=== PATIENT | male | born 1985 | race Caucasian/White ===

== ENCOUNTER 2016-03-15 13:33 | Outpatient (CLI) | payer SELFPAY | END 2016-03-15 13:34 | disposition home or self-care (01) | DX: M67.472 Ganglion, left ankle and foot (principal) ==

== ENCOUNTER 2018-01-01 11:10 | Emergency (ER) | payer SELFPAY ==
[2018-01-01] MEDS ORDERED: MAG HYDROX/AL HYDROX/SIMETH 30 ML UDC PO STA (11:24)
[2018-01-01] MEDS ORDERED: FAMOTIDINE 20 MG TABLET PO STA (11:24)
[2018-01-01] MEDS ORDERED: LIDOCAINE VISCOUS 2% 15 ML UDC MM STA (11:24)
[2018-01-01] MEDS ORDERED: PHENobarb/HYOSCY/ATROPINE/SCOP 5 ML UDC PO STA (11:24)
[2018-01-01] MEDS ORDERED: SUCRALFATE 1 GM/10 ML UDC PO STA (11:24)
--- NOTE | 2018-01-01 11:29 | ED Physician Documentation ---
PD HPI ABD PAIN - Stated complaint Stated Complaint: STOMACH PX - Chief complaint Chief Complaint: Abd Pain - History obtained from History obtained from: Patient, Family - History of Present Illness Timing - onset: How many days ago (4-5) Timing - duration: Days (4-5) Timing - details: Gradual onset Pain level max: 5 Pain level now: 4 Quality: Aching, Dull, Pain Location: Epigastric Radiation: Other (Nonradiating) Improved by: Other (Patient states that sometimes Tums helps) Worsened by: Eating Associated symptoms: Nausea, Diarrhea (States loose stools but no diarrhea). No: Fever, Vomiting, Hematemesis, Constipation, Melena, Hematochezia Similar symptoms before: Diagnosis (States has a history of GERD but is not taking medication) Recently seen: Not recently seen Review of Systems Constitutional: denies: Fever, Chills Respiratory: denies: Cough GI: denies: Hematemesis, Bloody / black stool Skin: denies: Rash Musculoskeletal: denies: Neck pain, Back pain PD PAST MEDICAL HISTORY - Past Medical History Cardiovascular: Hypertension Respiratory: Asthma GI: GERD Psych: Panic attacks - Past Surgical History Past Surgical History: No Cardiovascular: Cardiac catheterization - Present Medications Home Medications: Ambulatory Orders Medication Instructions Recorded Confirmed Famotidine [Pepcid] 20 mg PO BID #60 tablet 01/01/18 Sucralfate [Carafate] 1 gm PO ACHS #60 tablet 01/01/18 - Allergies Allergies/Adverse Reactions: Allergies Allergy/AdvReac Type Severity Reaction Status Date / Time No Known Drug Allergies Allergy Verified 01/01/18 11:18 - Social History Does the pt smoke?: No Smoking Status: Never smoker Does the pt drink ETOH?: Yes Does the pt have substance abuse?: Yes - Immunizations Immunizations are current?: Yes - POLST Patient has POLST: No PD ED PE NORMAL - Vitals Vital signs reviewed: Yes - General General: Alert and oriented X 3, No acute distress, Well developed/nourished - HEENT HEENT: PERRL - Neck Neck: Supple, no meningeal sign - Cardiac Cardiac: RRR, No murmur - Respiratory Respiratory: Clear bilaterally - Abdomen Abdomen: Soft, Non distended, Other (Tender palpation epigastric without peritoneal signs. No right upper quadrant tenderness.) - Back Back: No CVA TTP, No spinal TTP - Derm Derm: Warm and dry, No rash - Neuro Neuro: Alert and oriented X 3 - Psych Psych: Normal mood, Normal affect Results - Vitals Vitals: Vital Signs - 24 hr 01/01/18 01/01/18 11:16 12:08 Temperature 36.7 C Heart Rate 67 58 L Respiratory 16 16 Rate Blood Pressure 161/95 H 145/100 H O2 Saturation 98 98 Oxygen O2 Source Room air PD MEDICAL DECISION MAKING - ED course Complexity details: re-evaluated patient, considered differential, d/w patient, d/w family ED course: Patient is a 32-year-old male with what appears to be gastritis versus peptic ulcer disease. Symptoms resolved with GI cocktail. Has a history of GERD but is not on medications. Will place him on medications and see how he progresses. No evidence of biliary colic or pancreatitis at this time. Well-appearing, nontoxic. Afebrile. Tolerating p.o. without difficulty. Patient counseled regarding signs and symptoms for which I believe and urgent re-evaluation would be necessary. Patient with good understanding of and agreement to plan and is comfortable going home at this time This document was made in part using voice recognition software. While efforts are made to proofread this document, sound alike and grammatical errors may occur. Departure - Departure Disposition: 01 Home, Self Care Clinical Impression: Gastritis Qualifiers: Gastritis type: unspecified gastritis Chronicity: acute Gastritis bleeding: without bleeding Qualified Code(s): K29.00 - Acute gastritis without bleeding Condition: Good Instructions: ED PUD Vs Gastritis Follow-Up: Kyle Caldera MD [Primary Care Provider] - Within 1 week Prescriptions: Famotidine [Pepcid] 20 mg PO BID #60 tablet Sucralfate [Carafate] 1 gm PO ACHS #60 tablet Comments: Return if you worsen. This should improve over the next few days. Discharge Date/Time: 01/01/18 12:09
[2018-01-01 12:09] VITALS: BP 145/100
== END 2018-01-01 12:09 | disposition home or self-care (01) ==
LOC: ED 11:10
DX: K29.00 Acute gastritis without bleeding (principal); I10 Essential (primary) hypertension
CPT/HCPCS: 99283; A9270

== ENCOUNTER 2018-01-22 08:00 | Outpatient (CLI) | payer SELFPAY ==
[2018-01-22 13:21] LABS: ALBUMIN 4.7 g/dL (3.2-5.5); ALBUMIN/GLOBULIN RATIO 1.7 (1.0-2.2); ALKALINE PHOSPHATASE 43 IU/L (42-121); ALT ALANINE AMINOTRANSFERASE 41 IU/L (10-60); AMYLASE 40 U/L (28-100); AST ASPARTATE AMINOTRANSFERASE 24 IU/L (10-42); BILIRUBIN,TOTAL 1.2 mg/dL (0.2-1.0); BUN - BLOOD UREA NITROGEN 14 mg/dL (6-20); CALCIUM 8.8 mg/dL (8.5-10.3); CARBON DIOXIDE - CO2 26 mmol/L (21-32); CHLORIDE 103 mmol/L (101-111); CHOL/HDL RATIO 4.3 (<5.0); CHOLESTEROL 151 mg/dL; CREATININE 0.9 mg/dL (0.6-1.2); GFR - MDRD 98 (>89); GLUCOSE 96 mg/dL (70-100); HDL CHOLESTEROL 35 mg/dL; LDL CHOLESTEROL,CALCULATED 106 mg/dL; LIPASE 25 U/L (22-51); SODIUM 136 mmol/L (135-145); TOTAL PROTEIN 7.5 g/dL (6.7-8.2); VLDL CHOLESTEROL 10 mg/dL
[2018-01-22 13:22] LABS: HB2 TOTAL 16.4 g/dL; HEMOGLOBIN A1C 0.51 g/dL
[2018-01-22 13:54] LABS: BASOPHILS # (AUTO) 0.1 10^3/uL (0.0-0.1); EOSINOPHILS # (AUTO) 0.1 10^3/uL (0.0-0.7); EOSINOPHILS % (AUTO) 2.2 %; LYMPHOCYTES # (AUTO) 1.5 10^3/uL (1.5-3.5); LYMPHOCYTES % (AUTO) 27.4 %; MEAN CORPUSCULAR HEMOGLOBIN 32.6 pg (27.0-31.0); MEAN CORPUSCULAR HGB CONC 35.2 g/dL (32.0-36.0); MEAN CORPUSCULAR VOLUME 92.6 fL (80.0-94.0); MEAN PLATELET VOLUME 9.4 fL (7.4-11.4); MONOCYTES # (AUTO) 0.5 10^3/uL (0.0-1.0); MONOCYTES % (AUTO) 8.8 %; NEUTROPHILS # (AUTO) 3.2 10^3/uL (1.5-6.6); NEUTROPHILS % (AUTO) 60.6 %; PLT - PLATELET COUNT 212 10^3/uL (130-450); RED BLOOD COUNT 4.61 10^6/uL (4.70-6.10); RED CELL DISTRIBUTION WIDTH 12.2 % (12.0-15.0); WHITE BLOOD COUNT 5.3 x10^3/uL (4.8-10.8)
== END 2018-01-22 08:01 | disposition home or self-care (01) ==
LOC: LAB.N 08:00
PROVIDERS: ATTEND Family Medicine
DX: K58.9 Irritable bowel syndrome, unspecified (principal); R73.9 Hyperglycemia, unspecified; E66.9 Obesity, unspecified; R10.9 Unspecified abdominal pain
CPT/HCPCS: 36415; 80053; 80061; 82150; 83036; 83690; 83721; 84443; 85025

== ENCOUNTER 2018-06-01 13:24 | Emergency (ER) | payer SELFPAY ==
[2018-06-01] MEDS ORDERED: DEXAMETHASONE 10 MG/ML VIAL PO STA (15:51)
--- NOTE | 2018-06-01 15:53 | ED Physician Documentation ---
PD HPI SKIN - Stated complaint Stated Complaint: RASH - Chief complaint Chief Complaint: General - History obtained from History obtained from: Patient, Family - History of Present Illness Timing - onset: How many days ago (2) Timing - duration: Days (2) Timing - details: Gradual onset, Still present Location: Bodywide Quality / character: Itchy, Discolored Improved by: Benadryl Associated symptoms: No: Fever, Joint pain Contributing factors: Exposed to food Similar symptoms before: Has not had sx before Recently seen: Not recently seen - Additional information Additional information: Previously well 32-year-old male has developed a rash initially on his forearm and now body wide has a suspicion this may be related to quinoa. He went out with some friends ate some quinoa developed some itching on his forearm and then became what was so delicious that he went home and made some for himself the following night and the following morning it woke up with an overall body rash. He has taken some Benadryl without resolution. Review of Systems Constitutional: denies: Fever Eyes: denies: Decreased vision Ears: denies: Ear pain Nose: denies: Rhinorrhea / runny nose, Congestion Throat: denies: Sore throat Respiratory: denies: Cough GI: denies: Vomiting : denies: Dysuria Skin: reports: Rash Musculoskeletal: denies: Neck pain, Back pain, Extremity pain PD PAST MEDICAL HISTORY - Past Medical History Cardiovascular: Hypertension Respiratory: Asthma GI: GERD Psych: Panic attacks - Past Surgical History Past Surgical History: No Cardiovascular: Cardiac catheterization - Present Medications Home Medications: Ambulatory Orders Medication Instructions Recorded Confirmed predniSONE [Prednisone] 40 mg PO DAILY #10 tablet 06/01/18 - Allergies Allergies/Adverse Reactions: Allergies Allergy/AdvReac Type Severity Reaction Status Date / Time No Known Drug Allergies Allergy Verified 06/01/18 13:47 - Social History Does the pt smoke?: No Smoking Status: Never smoker Does the pt drink ETOH?: Yes Does the pt have substance abuse?: Yes - Immunizations Immunizations are current?: Yes - POLST Patient has POLST: No PD ED PE NORMAL - Vitals Vital signs reviewed: Yes (hypertensive mild ) - General General: Alert and oriented X 3, No acute distress, Well developed/nourished - HEENT HEENT: Atraumatic, PERRL, EOMI - Neck Neck: Supple, no meningeal sign, No bony TTP - Cardiac Cardiac: RRR, No murmur - Respiratory Respiratory: No respiratory distress, Clear bilaterally - Abdomen Abdomen: Soft, Non tender - Derm Derm: Normal color, Warm and dry, Other (fine rash is body wide consistent with allergic reaction ) - Extremities Extremities: No deformity, No edema - Neuro Neuro: Alert and oriented X 3, public improvement inspector 2-12 intact, No motor deficit, No sensory d eficit, Normal speech Eye Opening: Spontaneous Motor: Obeys Commands Verbal: Oriented GCS Score: 15 - Psych Psych: Normal mood, Normal affect Results - Vitals Vitals: Vital Signs - 24 hr 06/01/18 13:45 Temperature 36.8 C Heart Rate 78 Respiratory 20 Rate Blood Pressure 133/80 H O2 Saturation 97 Oxygen O2 Source Room air PD MEDICAL DECISION MAKING - ED course Complexity details: reviewed old records, considered differential, d/w patient, d/w family ED course: Previously well 32-year-old male has developed a rash initially on his forearm and now body wide has a suspicion this may be related to quinoa. He went out with some friends ate some quinoa developed some itching on his forearm and then became what was so delicious that he went home and made some for himself the following night and the following morning it woke up with an overall body rash. He has taken some Benadryl without resolution. Departure - Departure Disposition: 01 Home, Self Care Clinical Impression: Food allergic skin reaction Condition: Stable Instructions: ED Allergic React Food Follow-Up: Kyle Caldera MD [Primary Care Provider] - Prescriptions: predniSONE [Prednisone] 40 mg PO DAILY #10 tablet
[2018-06-01 16:04] VITALS: BP 142/83
== END 2018-06-01 16:03 | disposition home or self-care (01) ==
LOC: ED 13:24
DX: L27.2 Dermatitis due to ingested food (principal); T78.1XXA Other adverse food reactions, not elsewhere classified, initial encounter; I10 Essential (primary) hypertension
CPT/HCPCS: 99283

== ENCOUNTER 2018-11-08 09:31 | Emergency (ER) | payer SELFPAY ==
--- NOTE | 2018-11-08 10:14 | ED Physician Documentation ---
PD HPI LOWER EXT INJURY - Stated complaint Stated Complaint: GLF - LT LEG/SIDE PX - Chief complaint Chief Complaint: Trauma Ext - History obtained from History obtained from: Patient - History of Present Illness PD HPI LOW EXT INJURY LOCATION: Left, Hip Type of injury: Fall (fell to side and landed on hip and chest. Pain lateral hip and some mid lateral ribs area.) Timing - onset: Yesterday (got up for work today and was hurting significantly.) Timing - details: Abrupt onset, Still present Worsened by: Moving, Palpating Associated symptoms: No: Weakness, Numbness Contributing factors: No: Anticoagulated Similar symptoms before: Has not had sx before Review of Systems Cardiac: reports: Chest pain / pressure GI: denies: Abdominal Pain Skin: denies: Abrasion (s), Laceration (s) Musculoskeletal: reports: Extremity pain. denies: Neck pain, Back pain PD PAST MEDICAL HISTORY - Past Medical History Cardiovascular: Hypertension Respiratory: Asthma GI: GERD Psych: Panic attacks - Past Surgical History Past Surgical History: No Cardiovascular: Cardiac catheterization - Present Medications Home Medications: Ambulatory Orders Medication Instructions Recorded Confirmed RX: predniSONE [Prednisone] 40 mg PO DAILY #10 tablet 06/01/18 Hydrocodone/Acetaminophen [[place] 1 each PO Q6H PRN #15 tablet 11/08/18 5-325 Tablet] Ondansetron Odt [Zofran] 4 mg TL Q6H PRN #10 tablet 11/08/18 RX: Naproxen 500 mg PO BID #20 tablet 11/08/18 - Allergies Allergies/Adverse Reactions: Allergies Allergy/AdvReac Type Severity Reaction Status Date / Time No Known Drug Allergies Allergy Verified 11/08/18 09:41 - Social History Does the pt smoke?: No Smoking Status: Never smoker Does the pt drink ETOH?: Yes Does the pt have substance abuse?: Yes - Immunizations Immunizations are current?: Yes - POLST Patient has POLST: No PD ED PE NORMAL - Vitals Vital signs reviewed: Yes - General General: Alert and oriented X 3, No acute distress, Well developed/nourished - HEENT HEENT: Atraumatic - Neck Neck: Supple, no meningeal sign, No adenopathy - Cardiac Cardiac: RRR - Respiratory Respiratory: Clear bilaterally, Other (Some mild tenderness along the left lateral chest wall without any crepitance or focal deformity.) - Abdomen Abdomen: Soft, Non tender - Derm Derm: Normal color, Warm and dry - Extremities Extremities: Other (There is some tenderness on the left lateral trochanter. The hip joint itself has good range of motion. The back is nontender.) - Neuro Neuro: Alert and oriented X 3, No motor deficit, No sensory deficit, Normal speech Results - Vitals Vitals: Vital Signs - 24 hr 11/08/18 11/08/18 09:38 12:42 Temperature 36.7 C 37.0 C Heart Rate 81 73 Respiratory 19 15 Rate Blood Pressure 159/95 H 137/81 H O2 Saturation 98 99 Oxygen O2 Source Room air - Rads (name of study) left hip Radiology: Prelim report reviewed (no fractures), See rad report ribs with chest left Radiology: Prelim report reviewed (no fractures nor lung injury), See rad report Departure - Departure Disposition: 01 Home, Self Care Clinical Impression: Accidental fall Qualifiers: Encounter type: initial encounter Qualified Code(s): W19.XXXA - Unspecified fall, initial encounter Contusion of hip, left Qualifiers: Encounter type: initial encounter Qualified Code(s): S70.02XA - Contusion of left hip, initial encounter Chest wall contusion Qualifiers: Encounter type: initial encounter Laterality: left Qualified Code(s): S20.212A - Contusion of left front wall of thorax, initial encounter Condition: Stable Record reviewed to determine appropriate education?: Yes Instructions: ED Contusion Soft Tissue, ED Contusion Chest Wall Follow-Up: uJan Escobedo PA-C [Primary Care Provider] - Prescriptions: Hydrocodone/Acetaminophen [[place] 5-325 Tablet] 1 each PO Q6H PRN #15 tablet PRN Reason: Pain RX: Naproxen 500 mg PO BID #20 tablet Ondansetron Odt [Zofran] 4 mg TL Q6H PRN #10 tablet PRN Reason: Nausea / Vomiting Comments: No bony abnormalities on x-ray. The soft tissue bruising should be sore mostly for the first couple of days and then improve and likely the muscles will be sore for several days to week. Use some naproxen anti-inflammatory twice daily. Add Tylenol or hydrocodone if needed for pain in the short-term. Ondansetron if needed for nausea. Off work for a day or 2 if needed. Recheck if not improving over the next few days. Forms: Activity restrictions Discharge Date/Time: 11/08/18 12:42
[2018-11-08] MEDS ORDERED: MAG HYDROX/AL HYDROX/SIMETH 30 ML UDC PO STA (10:46)
[2018-11-08] MEDS ORDERED: HYDROcod/ACETAM 5/325 MG TABLET PO STA (10:46)
[2018-11-08] MEDS ORDERED: ONDANSETRON ODT 4 MG TABLET TL STA (10:46)
[2018-11-08] MEDS ORDERED: NAPROXEN 250 MG TABLET PO STA (10:46)
--- NOTE | 2018-11-08 12:00 | XRAY Report ---
Reason: fell to left side last night Procedure Date: 11/08/2018 Accession Number: [id number] / [id number] Procedure: XR - Ribs w/PA Chest LT CPT Code: FULL RESULT: EXAM: LEFT RIB RADIOGRAPHY EXAM DATE: 11/08/2018 11:22 AM. CLINICAL HISTORY: Fell to left side last night. COMPARISON: CHEST 1 VIEW 03/06/2016 5:42 AM. TECHNIQUE: 1 view of the chest and 2 views of the ribs. FINDINGS: Bones: Normal. No fracture or bone lesion. Lungs: No focal opacities. No pneumothorax. No pleural effusions. Mediastinum: Heart and mediastinal contours are unremarkable. Other: Calcified mediastinal lymph nodes could reflect sequelae of remote granulomatous disease. IMPRESSION: Normal chest and rib radiography. No displaced rib fracture is evident. No pneumothorax. RAD[facility]
--- NOTE | 2018-11-08 12:04 | XRAY Report ---
Reason: fell to left side last night Procedure Date: 11/08/2018 Accession Number: [id number] / [id number] Procedure: XR - Hip w/Pelvis 2-3V LT CPT Code: FULL RESULT: EXAM: LEFT HIP RADIOGRAPHY EXAM DATE: 11/08/2018 11:22 AM. CLINICAL HISTORY: Fell to left side last night. COMPARISON: None. TECHNIQUE: 2 views. FINDINGS: Bones: Normal. No fractures or bone lesion. Joints: Normal. No dislocation. The hip joint space is preserved. Soft Tissues: Normal. No soft tissue swelling. IMPRESSION: Normal hip radiography. RADIA
[2018-11-08 12:43] VITALS: BP 137/81
== END 2018-11-08 12:42 | disposition home or self-care (01) ==
LOC: ED 09:31
DX: S70.02XA Contusion of left hip, initial encounter (principal); S20.212A Contusion of left front wall of thorax, initial encounter; W19.XXXA Unspecified fall, initial encounter; Y92.89 Other specified places as the place of occurrence of the external cause; I10 Essential (primary) hypertension
CPT/HCPCS: 71101; 73502; 99284; A9270; Q0162

== ENCOUNTER 2019-03-10 10:09 | Emergency (ER) | payer MEDICAID ==
[2019-03-10 10:16] VITALS: BP 173/98
--- NOTE | 2019-03-10 11:11 | ED Physician Documentation ---
PD HPI HEENT - Stated complaint Stated Complaint: DENTAL PX - Chief complaint Chief Complaint: Heent - History obtained from History obtained from: Patient - History of Present Illness Timing - onset: How many days ago (several) Timing - duration: Days (several) Timing - details: Gradual onset, Still present, Waxing and waning Location: Tooth (right upper mostly, but some lower tooth pain as well.) Review of Systems Constitutional: denies: Fever, Chills, Myalgias Nose: denies: Rhinorrhea / runny nose, Congestion Throat: reports: Dental pain / toothache. denies: Sore throat Respiratory: denies: Cough GI: denies: Nausea, Vomiting, Diarrhea PD PAST MEDICAL HISTORY - Past Medical History Past Medical History: Yes Cardiovascular: Hypertension Respiratory: Asthma GI: GERD Psych: Panic attacks - Past Surgical History Past Surgical History: No Cardiovascular: Cardiac catheterization - Present Medications Home Medications: Ambulatory Orders Medication Instructions Recorded Confirmed predniSONE [Prednisone] 40 mg PO DAILY #10 tablet 06/01/18 Hydrocodone/Acetaminophen [[place] 1 each PO Q6H PRN #15 tablet 11/08/18 5-325 Tablet] Naproxen 500 mg PO BID #20 tablet 11/08/18 Ondansetron Odt [Zofran] 4 mg TL Q6H PRN #10 tablet 11/08/18 Chlorhexidine Gluconate [Peridex] 10 ml ORAL BID #118 ml 03/10/19 Clindamycin HCl [Clindamycin 300MG 300 mg PO TID #21 capsule 03/10/19 CAP] Hydrocodone/Acetaminophen [[place] 1 each PO Q6H PRN #20 tablet 03/10/19 5-325 Tablet] Naproxen 500 mg PO BID #20 tablet 03/10/19 - Allergies Allergies/Adverse Reactions: Allergies Allergy/AdvReac Type Severity Reaction Status Date / Time No Known Drug Allergies Allergy Verified 03/10/19 10:15 - Social History Does the pt smoke?: No Smoking Status: Never smoker Does the pt drink ETOH?: Yes Does the pt have substance abuse?: Yes - Immunizations Immunizations are current?: Yes - POLST Patient has POLST: No PD ED PE NORMAL - Vitals Vital signs reviewed: Yes - General General: Alert and oriented X 3, No acute distress, Well developed/nourished - HEENT HEENT: Ears normal, Pharynx benign, Other (dental decay moderate, with caries at areas that hurt right upper and lower premolars. Gum redness and tender diffusely that side, without focal fluctuance/swelling. ) - Neck Neck: Supple, no meningeal sign, No adenopathy - Cardiac Cardiac: RRR, No murmur - Respiratory Respiratory: Clear bilaterally - Derm Derm: Normal color, Warm and dry, No rash Results - Vitals Vitals: Vital Signs - 24 hr 03/10/19 10:14 Temperature 36.3 C L Heart Rate 68 Respiratory 20 Rate Blood Pressure 173/98 H O2 Saturation 97 Oxygen O2 Source Room air PD MEDICAL DECISION MAKING - ED course Complexity details: considered differential (dental pain at couple teeth. Some mild gum swelling. There is diffuse gum redness. ), d/w patient Departure - Departure Disposition: Home, Self Care Clinical Impression: Dental infection Condition: Stable Record reviewed to determine appropriate education?: Yes Instructions: ED Abscess Dental Follow-Up: Juan Escobedo PA-C [Primary Care Provider] - Prescriptions: Chlorhexidine Gluconate [Peridex] 10 ml ORAL BID #118 ml Clindamycin HCl [Clindamycin 300MG CAP] 300 mg PO TID #21 capsule Hydrocodone/Acetaminophen [[place] 5-325 Tablet] 1 each PO Q6H PRN #20 tablet PRN Reason: Pain Naproxen 500 mg PO BID #20 tablet Comments: Rinse with antiseptic bid. Naproxen twice daily for 7-10 days. Add Hydrocodone as needed for pains. Clindamycin antibiotic as directed for a week. Discharge Date/Time: 03/10/19 12:29
[2019-03-10] MEDS ORDERED: CLINDAMYCIN 150 MG CAPSULE PO STA (11:39)
[2019-03-10] MEDS ORDERED: HYDROcod/ACETAM 5/325 MG TABLET PO STA (11:39)
[2019-03-10] MEDS ORDERED: IBUPROFEN 600 MG TABLET PO STA (11:39)
== END 2019-03-10 12:29 | disposition home or self-care (01) ==
LOC: ED 10:09
DX: K04.7 Periapical abscess without sinus (principal); K02.9 Dental caries, unspecified; I10 Essential (primary) hypertension
CPT/HCPCS: 99283; A9270

== ENCOUNTER 2019-04-08 10:57 | Emergency (ER) | payer MEDICAID ==
[2019-04-08 11:06] VITALS: BP 142/84
[2019-04-08] MEDS ORDERED: PROPARACAINE 0.5% OPHTH DROPS 15 ML EACHEYE STA (12:16)
--- NOTE | 2019-04-08 12:25 | ED Physician Documentation ---
PD HPI OPHTHO - Stated complaint Stated Complaint: LT EYE PX - Chief complaint Chief Complaint: Heent - History obtained from History obtained from: Patient - History of Present Illness Timing - onset: Last night (Last night he pulled a flea off of his dog, he squeezed the guts and got swing his left eye and he had gradual onset swelling and redness of the left eye after that. No visual changes. He does not wear contacts.) Review of Systems Constitutional: reports: Reviewed and negative Nose: reports: Reviewed and negative Throat: reports: Reviewed and negative Cardiac: reports: Reviewed and negative PD PAST MEDICAL HISTORY - Past Medical History Past Medical History: Yes Cardiovascular: Hypertension Respiratory: Asthma GI: GERD Psych: Panic attacks Other Past Medical History: kawasaki disease - Past Surgical History Past Surgical History: No Cardiovascular: Cardiac catheterization - Present Medications Home Medications: Ambulatory Orders Medication Instructions Recorded Confirmed Erythromycin Base [Erythromycin 1 appful OP 5XD 7 Days #1 oint...g. 04/08/19 Ophthalmic Ointment] - Allergies Allergies/Adverse Reactions: Allergies Allergy/AdvReac Type Severity Reaction Status Date / Time No Known Drug Allergies Allergy Verified 04/08/19 11:06 - Social History Does the pt smoke?: No Smoking Status: Never smoker Does the pt drink ETOH?: Yes Does the pt have substance abuse?: Yes - Immunizations Immunizations are current?: Yes - POLST Patient has POLST: No PD ED PE NORMAL - Vitals Vital signs reviewed: Yes - General General: Alert and oriented X 3, No acute distress - HEENT HEENT: PERRL, EOMI, Other (Classic conjunctivitis of the left eye without fluorescein uptake, soft globes.) - Neck Neck: Supple, no meningeal sign, No bony TTP - Neuro Neuro: Alert and oriented X 3, Normal speech Results - Vitals Vitals: Vital Signs - 24 hr 04/08/19 11:03 Temperature 36.5 C Heart Rate 68 Respiratory 18 Rate Blood Pressure 142/84 H O2 Saturation 96 Oxygen O2 Source Room air Departure - Departure Disposition: 01 Home, Self Care Clinical Impression: Conjunctivitis Qualifiers: Conjunctivitis type: acute Acute conjunctivitis type: unspecified Laterality: left Qualified Code(s): H10.32 - Unspecified acute conjunctivitis, left eye Condition: Good Record reviewed to determine appropriate education?: Yes Instructions: ED Conjunctivitis Nonspecific Prescriptions: Erythromycin Base [Erythromycin Ophthalmic Ointment] 1 appful OP 5XD 7 Days #1 oint...g. Comments: Call your doctor to arrange a follow-up appointment, make the next available appointment. In the interim, return anytime if worse or if new symptoms develop. Your blood pressure was elevated today on check into the emergency department. This does not mean that you have hypertension, it is a common phenomenon to come to the emergency department and have elevated blood pressure. I recommend that you see your primary care physician within the week to have it rechecked when you are feeling better.
== END 2019-04-08 12:28 | disposition home or self-care (01) ==
LOC: ED 10:57
DX: H10.32 Unspecified acute conjunctivitis, left eye (principal); I10 Essential (primary) hypertension
CPT/HCPCS: 99282; 99284; J3490

== ENCOUNTER 2019-05-19 14:26 | Emergency (ER) | payer MEDICAID ==
--- NOTE | 2019-05-19 17:20 | XRAY Report ---
Reason: trauma/pain/swelling/numb Procedure Date: 05/19/2019 Accession Number: [id number] / [id number] Procedure: XR - Hand 3 View LT CPT Code: Final Report FULL RESULT: EXAM: LEFT HAND RADIOGRAPHY EXAM DATE: 05/19/2019 05:12 PM. CLINICAL HISTORY: Trauma/pain/swelling/numb. COMPARISON: None. TECHNIQUE: 3 views. FINDINGS: Bones: Oblique fracture proximal shaft of the fourth metacarpus with 0.3 cm dorsal displacement and distraction. Joints: Normal. No subluxations. Soft Tissues: Soft tissue swelling IMPRESSION: 1. Extra-articular oblique fracture proximal fourth metacarpal shaft with mild dorsal displacement and distraction. RADIA
[2019-05-19] MEDS ORDERED: IBUPROFEN 800 MG TABLET PO STA (17:35)
--- NOTE | 2019-05-19 17:44 | ED Physician Documentation ---
PD HPI UPPER EXT INJURY - Stated complaint Stated Complaint: LEFT HAND INJ - Chief complaint Chief Complaint: Ext Problem - History obtained from History obtained from: Patient - History of Present Illness Location: Left - Additonal information Additional information: Patient comes emergency department complaining of injuring his left hand. He states he slipped while walking by a rail and that his third webspace on the left hand straddled the picket of the railing. He states that he felt a sharp pain in his hand just below his ring finger.This happened approximately 30 minutes ago. He states that he has noticed a swelling and painful lump in his hand. No prior history of injury to the hand. No other injuries today. No other complaints at this time. Review of Systems Ten Systems: 10 systems reviewed and negative Constitutional: reports: Reviewed and negative Eyes: reports: Reviewed and negative Ears: reports: Reviewed and negative Nose: reports: Reviewed and negative Throat: reports: Reviewed and negative Cardiac: reports: Reviewed and negative Respiratory: reports: Reviewed and negative GI: reports: Reviewed and negative : reports: Reviewed and negative Skin: reports: Reviewed and negative Musculoskeletal: reports: Other (Left hand pain) Neurologic: reports: Reviewed and negative Psychiatric: reports: Reviewed and negative Endocrine: reports: Reviewed and negative Immunocompromised: reports: Reviewed and negative PD PAST MEDICAL HISTORY - Past Medical History Past Medical History: Yes Cardiovascular: Hypertension Respiratory: Asthma GI: GERD Psych: Panic attacks - Past Surgical History Past Surgical History: No Cardiovascular: Cardiac catheterization - Present Medications Home Medications: Ambulatory Orders Medication Instructions Recorded Confirmed Erythromycin Base [Erythromycin 1 appful OP 5XD 7 Days #1 oint...g. 04/08/19 Ophthalmic Ointment] Hydrocodone/Acetaminophen 1 - 2 each PO Q6H PRN #14 tablet 05/19/19 [Hydrocodon-Acetaminophen 5-325] - Allergies Allergies/Adverse Reactions: Allergies Allergy/AdvReac Type Severity Reaction Status Date / Time No Known Drug Allergies Allergy Verified 05/19/19 14:46 - Social History Does the pt smoke?: No Smoking Status: Never smoker Does the pt drink ETOH?: Yes Does the pt have substance abuse?: Yes - Immunizations Immunizations are current?: Yes - POLST Patient has POLST: No PD ED PE NORMAL - Vitals Vital signs reviewed: Yes - General General: Alert and oriented X 3, No acute distress - HEENT HEENT: Atraumatic, PERRL - Neck Neck: Supple, no meningeal sign - Cardiac Cardiac: Strong equal pulses - Respiratory Respiratory: No respiratory distress - Derm Derm: Normal color, Warm and dry, No rash - Extremities Extremities: Other (Patient has a small lump with surrounding edema over his fourth metacarpal bone in the mid shaft area. Patient is full range of motion of his wrist. No wrist deformity or tenderness. There is no tenderness in any of the fingers themselves. Patient has good distal sensation.He has full flexion and extension of the fingers.) - Neuro Neuro: Alert and oriented X 3 - Psych Psych: Normal mood, Normal affect Results - Vitals Vitals: Vital Signs - 24 hr 05/19/19 05/19/19 14:46 18:28 Temperature 36.5 C Heart Rate 72 85 Respiratory 16 16 Rate Blood Pressure 151/79 H 163/91 H O2 Saturation 97 100 Oxygen O2 Source Room air Procedures - Splint (location) L hand/wrist Splint applied by: Nurse, Tech Type of splint: Short arm Other: Patient tolerated well, No complications, Neurovascular intact, Good alignment PD MEDICAL DECISION MAKING - ED course Complexity details: reviewed results, re-evaluated patient, considered differential, d/w patient ED course: Patient was placed in a dorsal volar splint and given ibuprofen in the emergency department after x-ray showed a midshaft fourth metacarpal fracture. He was referred to hand specialist Dr. Prosper Bear at [facility] for follow-up. We have discussed the importance of leaving the splint on, as well as the importance of timely follow-up. Departure - Departure Disposition: 01 Home, Self Care Clinical Impression: Metacarpal bone fracture Condition: Good Instructions: ED Fx Hand Closed Prescriptions: Hydrocodone/Acetaminophen [Hydrocodon-Acetaminophen 5-325] 1 - 2 each PO Q6H PRN #14 tablet PRN Reason: pain Comments: Your hand x-ray showed a crack in the fourth metacarpal bone of the hand. This is the hand bone that corresponds to your ring finger. You have been placed in a splint for this, and should keep the splint on until you are seen by the hand specialist. Please call the number below first thing tomorrow to set up an appointment to follow-up within a week for your fracture. Please call Dr. Prosper Bear's office at [facility] at [phone]. Discharge Date/Time: 05/19/19 18:30
[2019-05-19 18:30] VITALS: BP 163/91
== END 2019-05-19 18:30 | disposition home or self-care (01) ==
LOC: ED 14:26
DX: S62.325A Displaced fracture of shaft of fourth metacarpal bone, left hand, initial encounter for closed fracture (principal); W22.09XA Striking against other stationary object, initial encounter; Y93.01 Activity, walking, marching and hiking; I10 Essential (primary) hypertension
CPT/HCPCS: 29125; 73130; 99283; 99284; A9270

== ENCOUNTER 2020-02-29 12:08 | Emergency (ER) | payer MEDICAID ==
[2020-02-29 12:15] VITALS: BP 164/96
[2020-02-29 12:32] LABS: BILIRUBIN,URINE NEGATIVE (NEGATIVE); GLUCOSE, URINE (UA) NEGATIVE (NEGATIVE); KETONES,URINE (UA) NEGATIVE (NEGATIVE); LEUKOCYTE ESTERASE, URINE NEGATIVE (NEGATIVE); NITRITE,URINE NEGATIVE (NEGATIVE); OCCULT BLOOD,URINE NEGATIVE (NEGATIVE); PH,URINE 8.5 PH (5.0-7.5); PROTEIN,URINE NEGATIVE (NEGATIVE); UROBILINOGEN,URINE 0.2 (NORMAL) E.U./dL (NORMAL)
[2020-02-29 12:34] LABS: CLARITY,URINE CLEAR (CLEAR)
[2020-02-29] MEDS ORDERED: ONDANSETRON 4 MG/2 ML VIAL IVP STA (12:41)
[2020-02-29] MEDS ORDERED: PANTOPRAZOLE 40 MG VIAL IVP STA (12:41)
[2020-02-29] MEDS ORDERED: SODIUM CHLORIDE 0.9% 1,000 ML IV STA (12:41)
--- NOTE | 2020-02-29 12:45 | ED Physician Documentation ---
History of Present Illness - Stated complaint Stated Complaint: NAUSEA,EYE PAIN,ABD PX - Chief complaint Chief Complaint: Abd Pain - History obtained from History obtained from: Patient - History of Present Illness Timing: How many days ago (3) - Additonal information Additional information: 34-year-old male presents the emergency department with chief complaint of epigastric and left upper quadrant abdominal pain. He reports that 3 nights ago he was drinking heavily with friends. The next morning he woke up and had epigastric pain. He is since had progressive nausea. No vomiting. He has had some episodes of nonbloody diarrhea. He denies fevers cough or chest pain. 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 He does not smoke. He does not take any medications prescribed by a physician. He does endorse a history of GERD and in his words "chews up the Tums." Denies melena or hematochezia Review of Systems Constitutional: denies: Fever, Chills Eyes: denies: Loss of vision, Decreased vision, Photophobia Ears: reports: Reviewed and negative Nose: reports: Reviewed and negative Throat: reports: Reviewed and negative Cardiac: reports: Reviewed and negative Respiratory: denies: Dyspnea, Cough GI: reports: Abdominal Pain, Nausea, Diarrhea. denies: Constipation : denies: Dysuria, Frequency, Hesitancy, Unable to Void Skin: reports: Reviewed and negative Musculoskeletal: reports: Reviewed and negative Neurologic: reports: Reviewed and negative PD PAST MEDICAL HISTORY - Past Medical History Cardiovascular: Hypertension Respiratory: Asthma GI: GERD Psych: Panic attacks - Past Surgical History Past Surgical History: No Cardiovascular: Cardiac catheterization - Present Medications Home Medications: Ambulatory Orders Medication Instructions Recorded Confirmed Pantoprazole Sodium [Protonix] 20 mg PO DAILY #30 tablet. 02/29/20 - Allergies Allergies/Adverse Reactions: Allergies Allergy/AdvReac Type Severity Reaction Status Date / Time No Known Drug Allergies Allergy Verified 02/29/20 12:15 - Social History Does the pt smoke?: No Smoking Status: Never smoker Does the pt drink ETOH?: Yes Does the pt have substance abuse?: Yes - Immunizations Immunizations are current?: Yes - POLST Patient has POLST: No PD ED PE EXPANDED - General General: Alert, No acute distress, Well developed/nourished, Other (obese) - Neck Neck: Supple w/out meningeal sx. No: Adenopathy - Cardiac Cardiac: Regular Rate, Regular Rhythm, Radial strong equal, Cap refill < 2 sec - Respiratory Respiratory: Clear to ausultation kendra. No: Distress, Labored - Abdomen Abdomen: Normal Bowel sounds, Tender to palpation, Epigastric (Mild epigastric tenderness without guarding or rebound. Negative Portillo's, negative McBurney's.) - Derm Derm: Normal color, Warm and dry. No: Rash - Extremities Extremities: Normal - Neuro Neuro: Alert and Oriented X 3, CNII-XII intact - GCS Eye Opening: Spontaneous Motor: Obeys Commands Verbal: Oriented Total: 15 Results - Vitals Vitals: Vital Signs - 24 hr 02/29/20 12:12 Temperature 36.1 C L Heart Rate 73 Respiratory 20 Rate Blood Pressure 164/96 H O2 Saturation 100 Oxygen O2 Source Room air - Labs Labs: Laboratory Tests 02/29/20 02/29/20 02/29/20 12:20 12:35 12:35 WBC 11.3 H RBC 4.87 Hgb 16.0 Hct 44.5 MCV 91.4 MCH 32.9 H MCHC 36.0 RDW 11.8 L Plt Count 261 MPV 10.1 Neut # (Auto) 7.9 H Lymph # (Auto) 2.2 Burnett # (Auto) 0.9 Eos # (Auto) 0.2 Baso # (Auto) 0.1 Absolute Nucleated RBC 0.00 Nucleated RBC % 0.0 Sodium 138 Potassium 3.9 Chloride 102 Carbon Dioxide 27 Anion Gap 9.0 BUN 10 Creatinine 0.7 Estimated GFR (MDRD) 129 Glucose 105 H Calcium 9.1 Total Bilirubin 0.5 AST 35 ALT 70 H Alkaline Phosphatase 58 Total Protein 8.0 Albumin 4.8 Globulin 3.2 Albumin/Globulin Ratio 1.5 Lipase 40 Urine Color YELLOW Urine Clarity CLEAR Urine pH 8.5 H Ur Specific Crawley 1.015 Urine Protein NEGATIVE Urine Glucose (UA) NEGATIVE Urine Ketones NEGATIVE Urine Occult Blood NEGATIVE Urine Nitrite NEGATIVE Urine Bilirubin NEGATIVE Urine Urobilinogen 0.2 (NORMAL) Ur Leukocyte Esterase NEGATIVE Ur Microscopic Review NOT INDICATED Urine Culture Comments NOT INDICATED PD MEDICAL DECISION MAKING - ED course Complexity details: reviewed results, re-evaluated patient, considered differential, d/w patient ED course: 30-year-old 34-year-old male presents the emergency department with 2-1/2 days of epigastric and left-sided belly pain that follows a night of heavy drinking. He endorses nausea but no vomiting. He is also had a few episodes of nonbloody diarrhea. Today here on lab examination we note that he has no significant leukocytosis. His electrolytes are essentially unremarkable. Normal liver and renal function. No lipase elevation. This gentleman was given Zofran as well as Protonix here in the emergency department with marked resolution of symptoms. However it should be noted that he he has minimal pain on initial exam. I suspect that he is most likely developing gastritis. I do not feel that he would benefit from advanced imaging. I will recommend that he take Protonix daily on an outpatient basis as well as follow-up with the doctor that he is scheduled an appointment for. He may benefit from an EGD. I did recommend avoidance of further alcohol caffeine or spicy foods until resolved. Departure - Departure Disposition: 01 Home, Self Care Clinical Impression: Epigastric abdominal pain Gastritis Qualifiers: Gastritis type: unspecified gastritis Chronicity: acute Gastritis bleeding: without bleeding Qualified Code(s): K29.00 - Acute gastritis without bleeding Record reviewed to determine appropriate education?: Yes Instructions: ED Gastritis Follow-Up: [facility] [Provider Group] - Within 1 week Prescriptions: Pantoprazole Sodium [Protonix] 20 mg PO DAILY #30 tablet. Comments: You were seen in the emergency department today for upper abdominal pain. As we discussed I suspect that the cause of your pain is likely a gastritis. This may be due to a night of heavy drinking although caffeine intake can contribute to it. I would like you to start taking the Protonix every day. Please avoid spicy foods, caffeine or alcohol until you are seen by your primary care doctor. In the long-term you may benefit from referral to a cigarette machine filler for an EGD where they could place a camera into your mouth and esophagus looking for peptic ulcer disease. Return to the emergency department if you develop fevers, have black or bloody stools, have bloody vomit suddenly severe or different abdominal pain
[2020-02-29 12:47] LABS: BASOPHILS # (AUTO) 0.1 10^3/uL (0.0-0.1); BASOPHILS % (AUTO) 0.5 %; EOSINOPHILS # (AUTO) 0.2 10^3/uL (0.0-0.7); EOSINOPHILS % (AUTO) 1.9 %; LYMPHOCYTES # (AUTO) 2.2 10^3/uL (1.5-3.5); LYMPHOCYTES % (AUTO) 19.7 %; MEAN CORPUSCULAR HEMOGLOBIN 32.9 pg (27.0-31.0); MEAN CORPUSCULAR VOLUME 91.4 fL (80.0-94.0); MEAN PLATELET VOLUME 10.1 fL (7.4-11.4); MONOCYTES # (AUTO) 0.9 10^3/uL (0.0-1.0); MONOCYTES % (AUTO) 8.1 %; NEUTROPHILS # (AUTO) 7.9 10^3/uL (1.5-6.6); NEUTROPHILS % (AUTO) 69.4 %; PLT - PLATELET COUNT 261 10^3/uL (130-450); RED BLOOD COUNT 4.87 10^6/uL (4.70-6.10); RED CELL DISTRIBUTION WIDTH 11.8 % (12.0-15.0); WHITE BLOOD COUNT 11.3 x10^3/uL (4.8-10.8)
[2020-02-29 12:55] LABS: ALBUMIN 4.8 g/dL (3.2-5.5); ALBUMIN/GLOBULIN RATIO 1.5 (1.0-2.2); BILIRUBIN,TOTAL 0.5 mg/dL (0.2-1.0); CALCIUM 9.1 mg/dL (8.5-10.3); CREATININE 0.7 mg/dL (0.6-1.2)
== END 2020-02-29 14:16 | disposition home or self-care (01) ==
LOC: ED 12:08
DX: K29.00 Acute gastritis without bleeding (principal); R10.13 Epigastric pain; I10 Essential (primary) hypertension; Z20.828 Contact with and (suspected) exposure to other viral communicable diseases
CPT/HCPCS: 36415; 80053; 81001; 81003; 83690; 85025; 87086; 96374; 99284

== ENCOUNTER 2020-04-12 12:17 | Outpatient (CLI) | payer MEDICAID ==
--- NOTE | 2020-04-12 15:17 | XRAY Report ---
PROCEDURE: Hand 3 View LT INDICATIONS: LEFT HAND PAIN TECHNIQUE: 3 views of the hand(s) acquired. COMPARISON: X-ray hand 05/19/2019 FINDINGS: Bones: No acute fractures or dislocations. No suspicious bony lesions. Healed fourth metacarpal fr acture. Soft tissues: No suspicious soft tissue calcifications. IMPRESSION: Healed fourth metacarpal fracture. No acute osseous abnormalities identified. Reviewed by: Edita Lomax MD on 04/12/2020 3:16 PM [facility] Approved by: Edita Lomax MD on 04/12/2020 3:16 PM [facility] Station ID: [id number]
--- NOTE | 2020-04-12 15:18 | XRAY Report ---
PROCEDURE: Lumbar Spine 2 View INDICATIONS: BACK PAIN,LUMBAR W/RADICULOPATH, HAND JOINT PAIN L TECHNIQUE: views of the lumbar spine were acquired. COMPARISON: None. FINDINGS: Bones: 5 [id number] vertebrae are present. There is straightening of normal lumbar curvature. There is trace retrolisthesis of L4 on L5. Moderate to severe disc space narrowing is present L4-5. S evere foraminal narrowing is noted L5-S1, moderate to severe L4-5. Nonbridging anterior osteophytes a re most notable L4 and L5. Minimal wedge appearance is noted L4 vertebral body of indeterminate age. No suspicious bony lesions. Soft tissues: Overlying bowel gas pattern is normal. No suspicious soft tissue calcifications. IMPRESSION: 1. Degenerative changes most severe at L4-5 and L5-S1. 2. Mild wedge appearance at L4 of indeterminate age. Reviewed by: Edita Lomax MD on 04/12/2020 3:17 PM PST Approved by: Edita Lomax MD on 04/12/2020 3:17 PM PST Station ID: [id number]
== END 2020-04-12 12:18 | disposition home or self-care (01) ==
LOC: DI 12:17
PROVIDERS: ATTEND Nurse Practitioner
DX: M47.27 Other spondylosis with radiculopathy, lumbosacral region (principal); M48.061 Spinal stenosis, lumbar region without neurogenic claudication; M79.642 Pain in left hand

== ENCOUNTER 2021-09-06 16:37 | Outpatient (CLI) | payer MEDICAID ==
[2021-09-06 20:48] LABS: BASOPHILS # (AUTO) 0.1 10^3/uL (0.0-0.1); BASOPHILS % (AUTO) 0.7 %; EOSINOPHILS # (AUTO) 0.3 10^3/uL (0.0-0.7); EOSINOPHILS % (AUTO) 2.9 %; HCT - HEMATOCRIT 41.7 % (42.0-52.0); HGB - HEMOGLOBIN 14.3 g/dL (14.0-18.0); LYMPHOCYTES # (AUTO) 2.6 10^3/uL (1.5-3.5); LYMPHOCYTES % (AUTO) 27.2 %; MEAN CORPUSCULAR HEMOGLOBIN 31.8 pg (27.0-31.0); MEAN CORPUSCULAR HGB CONC 34.3 g/dL (32.0-36.0); MEAN CORPUSCULAR VOLUME 92.9 fL (80.0-94.0); MEAN PLATELET VOLUME 11.2 fL (7.4-11.4); MONOCYTES # (AUTO) 0.7 10^3/uL (0.0-1.0); MONOCYTES % (AUTO) 7.8 %; NEUTROPHILS # (AUTO) 5.7 10^3/uL (1.5-6.6); NEUTROPHILS % (AUTO) 61.1 %; PLT - PLATELET COUNT 262 10^3/uL (130-450); RED BLOOD COUNT 4.49 10^6/uL (4.70-6.10); RED CELL DISTRIBUTION WIDTH 11.8 % (12.0-15.0); WHITE BLOOD COUNT 9.4 x10^3/uL (4.8-10.8)
[2021-09-06 20:49] LABS: ESTIMATED AVERAGE GLUCOSE 105 mg/dL (70-100); HEMOGLOBIN A1c% 5.3 % (4.27-6.07)
[2021-09-06 20:57] LABS: ALBUMIN 4.3 g/dL (3.2-5.5); ALBUMIN/GLOBULIN RATIO 1.1 (1.0-2.2); ALKALINE PHOSPHATASE 51 IU/L (42-121); ALT ALANINE AMINOTRANSFERASE 78 IU/L (10-60); AST ASPARTATE AMINOTRANSFERASE 42 IU/L (10-42); BILIRUBIN,TOTAL 0.2 mg/dL (0.2-1.0); BUN - BLOOD UREA NITROGEN 14 mg/dL (6-20); CALCIUM 9.1 mg/dL (8.5-10.3); CARBON DIOXIDE - CO2 30 mmol/L (21-32); CHLORIDE 103 mmol/L (101-111); CHOL/HDL RATIO 4.3 (<5.0); CHOLESTEROL 151 mg/dL; CREATININE 0.8 mg/dL (0.6-1.2); GFR - MDRD 110 (>89); GLUCOSE 87 mg/dL (70-100); HDL CHOLESTEROL 35 mg/dL; LDL CHOLESTEROL,CALCULATED 94 mg/dL; LDL/HDL RATIO 2.7 (<3.6); POTASSIUM 4.2 mmol/L (3.5-5.0); SODIUM 142 mmol/L (135-145); TOTAL PROTEIN 8.1 g/dL (6.7-8.2); TRIGLYCERIDES 110 mg/dL; VLDL CHOLESTEROL 22 mg/dL
[2021-09-06 21:08] LABS: THYROID STIMULATING HORMONE 3.35 uIU/mL (0.34-5.60)
[2021-09-06 21:36] LABS: LUTEINIZING HORMONE 0.96 mIU/mL
[2021-09-08 14:10] LABS: FREE TESTOSTERONE(DIRECT) 4.8 pg/mL (8.7-25.1)
== END 2021-09-06 16:38 | disposition home or self-care (01) ==
LOC: LAB.N 16:37
PROVIDERS: ATTEND Nurse Practitioner Family
DX: N62 Hypertrophy of breast (principal); N64.4 Mastodynia; N63.0 Unspecified lump in unspecified breast; Z68.41 Body mass index [BMI] 40.0-44.9, adult
CPT/HCPCS: 36415; 80053; 80061; 83002; 83036; 83721; 84270; 84402; 84403; 84443; 85025

== ENCOUNTER 2022-07-22 20:19 | Emergency (ER) | payer MEDICAID ==
[2022-07-22 21:05] LABS: RAPID STREP SCREEN Negative (Negative)
--- NOTE | 2022-07-23 03:05 | ED Physician Documentation ---
PD HPI HEENT - Stated complaint Stated Complaint: SWOLLEN THROAT - Chief complaint Chief Complaint: Heent - History obtained from History obtained from: Patient - Additional information Additional information: HPI from patient. Patient c/o 4-5 days of sore throat with odynophagia, 1-2 days left ear pain and generalized headache. Denies fever, chills, sweats. Review of Systems Constitutional: denies: Fever Ears: reports: Ear pain Throat: reports: Sore throat Respiratory: denies: Dyspnea, Cough PD PAST MEDICAL HISTORY - Past Medical History Cardiovascular: Hypertension Respiratory: Asthma Neuro: None Endocrine/Autoimmune: None GI: GERD : None HEENT: None Psych: Panic attacks Musculoskeletal: None Derm: None - Past Surgical History Past Surgical History: No Cardiovascular: Cardiac catheterization - Present Medications Home Medications: Ambulatory Orders Medication Instructions Recorded Confirmed Amox/Clav 875/125 [Augmentin 1 tablet PO Q12H 10 Days #20 tablet 07/23/22 875/125 Tab] Oxycodone HCl/Acetaminophen 1 - 2 each PO Q6H PRN #14 tablet 07/23/22 [Percocet 5-325 mg Tablet] - Allergies Allergies/Adverse Reactions: Allergies Allergy/AdvReac Type Severity Reaction Status Date / Time No Known Drug Allergies Allergy Verified 07/22/22 20:50 - Social History Does the pt smoke?: No Smoking Status: Never smoker Does the pt drink ETOH?: Yes Does the pt have substance abuse?: Yes - Immunizations Immunizations are current?: Yes - POLST Patient has POLST: No PD ED PE NORMAL - Vitals Vital signs reviewed: Yes - General General: Alert and oriented X 3, No acute distress, Well developed/nourished - Neck Neck: Supple, no meningeal sign - Respiratory Respiratory: No respiratory distress, Clear bilaterally PD ED PE EXPANDED - HEENT HEENT: L TM red, Pharyngeal erythema, Swollen tonsils. No: Tonsillar exudate Results - Vitals Vitals: Oxygen O2 Source Room air - Labs Labs: Microbiology 07/22/22 20:53 Group A Strep Throat Culture - Final Throat MIXED OROPHARYNGEAL MATTHIAS PRESENT. NO BETA STREP PRESENT IN CULTURE. Laboratory Tests 07/22/22 20:53 Group A Strep Rapid Negative PD Medical Decision Making - ED course Complexity details: considered differential, d/w patient ED course: Rapid strep negative. However, there is significant bilateral posterior oropharyngeal swelling and erythema and thus he is given 10mg PO decadron for anti-inflammatory properties, oxycodone for pain, and augmentin for possible bacterial etiology . Prescriptions for augmentin and percocet are e-prescribed to patient's pharmacy of choice I am prescribing a short course of short-acting opioid pain medication for this patient. I have reviewed the patients [employer]ITTER and no concerning findings were noted. I have discussed that the opioids are for short term therapy only, and will not be refilled from the ED. Departure - Departure Disposition: 01 Home, Self Care Clinical Impression: Pharyngitis Qualifiers: Pharyngitis/tonsillitis etiology: unspecified etiology Qualified Code(s): J02.9 - Acute pharyngitis, unspecified Otitis media Qualifiers: Otitis media type: suppurative Chronicity: acute Laterality: left Recurrence: non-recurrent Spontaneous tympanic membrane rupture: without spontaneous rupture Qualified Code(s): H66.002 - Acute suppurative otitis media without spontaneous rupture of ear drum, left ear Condition: Good Instructions: ED Otitis Media Acute Adult, ED Strep Pharyngitis Poss Follow-Up: Izzy Mcclain ARNP [Primary Care Provider] - (3-4 days) Prescriptions: Amox/Clav 875/125 [Augmentin 875/125 Tab] 1 tablet PO Q12H 10 Days #20 tablet Oxycodone HCl/Acetaminophen [Percocet 5-325 mg Tablet] 1 - 2 each PO Q6H PRN #14 tablet PRN Reason: pain Comments: The rapid strep test is negative; the lab will now test the same swab as a culture. The throat culture is more accurate than the rapid test, but takes longer (1 to 2 days). The throat culture will only detect bacterial causes of pharyngitis. Usually, if the throat culture is positive for a bacterial, you will receive a phone call from this emergency department; however, since you are being put on an antibiotic that would cover most of the bacterial causes of a sore throat, you may or may not receive a phone call. You are given the first dose of the antibiotic (Augmentin) and a prescription for a 10-day course of this antibiotic has been electronically submitted to the [facility] pharmacy in [place]. You were also given a one-time dose of a steroid orally (Decadron); the steroid will often help with the swelling and the pain, although it is a slow acting medication, taking several hours to have effect. You are also given 10 mg of oxycodone and a prescription for Percocet (which is the same as oxycodone but also with acetaminophen), has been electronically submitted to the [facility] pharmacy in [place] as well. I am prescribing a short course of narcotic pain medication for you. These are potentially dangerous and addictive medications that should be used carefully. These medications may constipate you. Take an [id number]-kbqwtbv stool softener (docusate) twice daily with plenty of water while taking these medications. If you go 24 hours without a bowel movement, take [id number] miralax, per package instructions. Do not drink or drive while taking these medications. If you received narcotic or sedating medications while in the emergency department, do not drive for 24 hours. Store this medication in a safe, secure place and out of reach of children. It is a violation of federal law to give or sell this medication to another person or to use in a manner other than prescribed. The ED will not refill narcotic prescriptions, including prescriptions lost or stolen. To dispose of unwanted medications: 1. [facility] [address] in [place] has a medication drop box. They accept prescription medications (in pill form) Friday through Friday 9:00 a.m. to 5:00 p.m. 2. The [facility] accepts prescription medications (in pill form only) for disposal year round. Call for more information. 3. Contact the [facility] for the next [facility] sponsored prescription drug collection event. , [phone], or [phone]; Forms: Activity restrictions Discharge Date/Time: 07/23/22 03:35
[2022-07-23] MEDS ORDERED: CHERRY SYRUP 10 ML UDC PO ONE (03:17)
[2022-07-23] MEDS ORDERED: DEXAMETHASONE 10 MG/ML VIAL PO STA (03:17)
[2022-07-23] MEDS ORDERED: oxyCODONE 5 MG TABLET PO STA (03:18)
[2022-07-23] MEDS ORDERED: AMOX/CLAV 875 MG/125 MG TABLET PO STA (03:18)
[2022-07-23 03:27] VITALS: BP 162/98
== END 2022-07-23 03:35 | disposition home or self-care (01) ==
LOC: ED 20:19
DX: J02.9 Acute pharyngitis, unspecified (principal); H66.002 Acute suppurative otitis media without spontaneous rupture of ear drum, left ear; I10 Essential (primary) hypertension
CPT/HCPCS: 87070; 87430; 99283; A9270